=== PATIENT | female | born 1990 | race Hispanic/Latino ===

== ENCOUNTER 2016-10-03 12:45 | Emergency (ER) | payer OTHER ==
[~2016-10-03] VITALS: Ht 152.4 cm; Wt 59.4 kg
[~2016-10-03 12:45] MED LIST: ANTIVERT/5050 MG PO; EXCEDRIN MIGRAI1 TAB PO; FLEXERIL10 MG PO; IBU-6600 MG PO; MOBIC15 M1 PO; MOTRIN 600 MG600 MG PO; PYRIDIUM200 MG PO
--- NOTE | 2016-10-03 13:21 | ED GI/GU/ABDOMINAL COMPLAINT ---
History of Present Illness General Chief Complaint: Abdominal Pain/Flank Pain Stated Complaint: LRQ ABD PAIN, DIARRHEA X 12 HRS Source: patient Exam Limitations: no limitations Vital Signs & Intake/Output Vital Signs & Intake/Output Vital Signs Date Time Temp Pulse Resp B/P Pulse O2 O2 Flow FiO2 Ox Delivery Rate 10/03 1715 97.6 85 18 103/58 97 Room Air 10/03 1439 96.3 81 18 121/72 100 Room Air 10/03 1350 Room Air 10/03 1256 98.0 98 18 110/70 99 Room Air Allergies Coded Allergies: NO KNOWN ALLERGIES (10/03/16) Reconcile Medications Ibuprofen 800 MG TABLET 800 MG PO TID PRN PAIN SCALE 4-6 (MODERATE) Oxycodone HCl/Acetaminophen (Percocet 5-325 MG Tablet) 5 MG-325 MG TABLET 2 TAB PO Q4-6 PRN PRN PAIN SCALE 7-10 (SEVERE) Triage Note: RECEIVED 26 YO FEMALE C/O RLQ ABOMINAL PAIN, STARTED LAST NIGHT WITH DIARRHEA. LMP 09/23/16 NO C/O NAUSEA OR VOMITING Triage Nurses Notes Reviewed? yes ? N Is pt currently ? No Onset: Gradual Duration: day(s): (1) Timing: no prior history Quality/Severity: sharpness Severity Numbers: 9 Location: right lower quadrant Radiation: no radiation Activities at Onset: none Prior Abdominal Problems: none Sexually Active: Yes Last Time You Were Sexual: less than 2 months ago Sexual Orientation: Heterosexual Use of Protection: No Modifying Factors: Worsens With: movement, palpation. HPI: Patient is a 26-year-old female presenting to the emergency Department chief complaint of right lower quadrant pain that began last name progressively getting worse today. Pain has been constant. Pain is sharp and stabbing, nonradiating. Denies any associate any fevers chills nausea or vomiting. She does report one episode of loose stool this morning. No blood in the stool. Denies any recent antibiotic use. No recent travel. Denies any abdominal surgeries. Denies chance of . Denies any urinary frequency urgency or dysuria. Symptoms currently moderate to severe. Denies taking anything for pain prior to arrival. (LEXI BRYAN,JAY) Past History Travel History Traveled to [place] past 21 day No Medical History Any Pertinent Medical History? see below for history Neurological: NONE EENT: NONE Cardiovascular: NONE Respiratory: NONE Gastrointestinal: NONE Hepatic: NONE Renal: NONE Musculoskeletal: NONE Psychiatric: NONE Endocrine: NONE Blood Disorders: NONE Cancer(s): NONE NURSERY HELPER/Reproductive: NONE Surgical History Surgical History: non-contributory Psychosocial History What is your primary language Spanish Tobacco Use: Quit >30 days ago Family History Hx Contributory? No (JAY OAKLEY) Review of Systems Review of Systems Constitutional: Reports: no symptoms. Comments Review of systems: See HPI, All other systems negative. Constitutional, no chills fever or weight loss HEENT: No visual changes no sore throat no congestion Cardiovascular: No chest pain ,palpitation , orthopnea or ankle swelling Skin, no jaundice no rashes Respiratory: No dyspnea cough sputum or hemoptysis GI: No nausea no vomiting : No dysuria No hematuria Muscle skeletal: no back pain, no neck pain, Neurologic: No numbness no confusion Psych: No stress anxiety or depression,. Heme/endocrine: No bruising no bleeding no polyuria or polydipsia Immunology: No splenectomy or history of AIDS (JAY OAKLEY) Physical Exam Physical Exam General Appearance: well developed/nourished, alert, awake, mild distress Gastrointestinal: distention, guarding, rebound, HYPERACTIVE BOWEL SOUNDS Comments: Well-developed well-nourished person in mild distress HEENT: Pupils equally round and reactive to light and accommodation. Nose is atraumatic. Neck: Normal inspection Back: Nontender, no CVA tenderness. Full range of motion Cardiovascular: Regular rate and rhythms no murmurs rubs or gallops, normal JVP Respiratory: Chest nontender. No respiratory distress.breath sounds clear to auscultation bilaterally Abdomen: Moderately distended, hyperactive bowel sounds, positive rebound tenderness and tenderness in the right lower quadrant. No appreciable organomegaly. No ascites Extremity: No edema Neuro: Alert oriented x3 Skin: No appreciable rash on exposed skin, skin is warm and dry. Psych: Mood and affect is normal, memory and judgment is normal. Core Measures ACS in differential dx? No Severe Sepsis Present: No Septic Shock Present: No (JAY OAKLEY) Progress Differential Diagnosis: UTI/pyelo, APPENDICITIS, OVARIAN TORSION, OVARIAN CYSTS, GASTRITIS, COLITIS Plan of Care: Orders Procedure Date/time Status LACTIC ACID 10/03 1321 Complete C-REACTIVE PROTEIN 10/03 1321 Complete COMPREHENSIVE METABOLIC PANEL 10/03 1321 Complete CBC WITHOUT DIFFERENTIAL 10/03 1321 Complete URINE 10/03 1259 Complete URINALYSIS 10/03 1259 Complete Laboratory Tests 10/03/16 1621: Lactic Acid Cancelled 10/03/16 1338: Urine Color YEL, Urine Clarity CLEAR, Urine pH 6.0, Ur Specific [place] 1.025, Urine Protein NEG, Urine Ketones NEG, Urine Nitrite NEG, Urine Bilirubin NEG, Urine Urobilinogen 0.2, Ur Leukocyte Esterase NEG, Ur Microscopic EXAM NOT REQUIRED, Urine Hemoglobin NEG, Urine Glucose NEG, Urine Test NEGATIVE 10/03/16 1335: Anion Gap 10, Estimated GFR > 60, BUN/Creatinine Ratio 21.4, Glucose 94, Lactic Acid 0.7, Calcium 9.3, Total Bilirubin 1.3, AST 34, ALT 38, Alkaline Phosphatase 63, C-Reactive Prot, Quant 0.6, Total Protein 7.7, Albumin 4.5, Globulin 3.2, Albumin/Globulin Ratio 1.4, CBC w Diff NO MAN DIFF REQ, RBC 4.07 L, MCV 92.3, MCH 31.0, RDW 12.9, MPV 8.1, Gran % 67.1, Lymphocytes % 24.8, Monocytes % 6.9, Eosinophils % 0.7, Basophils % 0.5, Absolute Granulocytes 6.7 H, Absolute Lymphocytes 2.5, Absolute Monocytes 0.7 H, Absolute Eosinophils 0.1, Absolute Basophils 0, PUBS MCHC 33.6 Diagnostic Imaging: Viewed by Me: CT Scan, Ultrasound. Discussed w/RAD: CT Scan, Ultrasound. Radiology Impression: PRESENT AGE: 26 PATIENT ACCOUNT NO: [id number] : 91 LOCATION: [facility] ORDERING PHYSICIAN: JAY BRYAN SERVICE DATE: EXAM TYPE: CAT - CT ABD & PELVIS W IV CONTRAST EXAMINATION: CT ABDOMEN AND PELVIS WITH CONTRAST CLINICAL INFORMATION: Right lower quadrant. COMPARISON: CT abdomen and pelvis 08/11/2013. TECHNIQUE: Multidetector volumetric imaging was performed of the abdomen and pelvis before and after the IV administration of 94 mL of Optiray 320 intravenous contrast. Sagittal and coronal reformatted images were obtained on the technologist's workstation. DLP: 235 mGy-cm FINDINGS : LUNG BASES: The visualized lung bases appear unremarkable. LIVER, GALLBLADDER, AND BILIARY TREE: The liver is normal in size, shape, and attenuation. No focal hepatic lesion or biliary ductal dilatation is present. The gallbladder is unremarkable with no evidence of radiopaque gallstones, gallbladder wall thickening, or obvious pericholecystic inflammatory changes. PANCREAS: Unremarkable. SPLEEN: Unremarkable. ADRENAL GLANDS: Unremarkable. KIDNEYS AND URETERS: The kidneys are normal in size and enhance homogeneously, without focal lesions. There is no appreciable nephrolithiasis or hydroureteronephrosis of either kidney or renal collecting system. No ureteral stones are identified. BLADDER: The urinary bladder is decompressed. GASTROINTESTINAL TRACT: Evaluation of the gastrointestinal system is notable for hyperdense material within Morison 's pouch. Hyperdense material is also visualized layering dependently within the right paracolic gutter, within the lower abdomen as well as within the pelvis. This fluid is visualized measuring up to 45 Hounsfield units, which is indicative of intraperitoneal blood products. Normal anatomic orientation of the stomach relative to the duodenum. Normal caliber of abdominal and pelvic bowel loops, without evidence of obstruction or ileus. No circumferential bowel wall thickening with surrounding inflammatory changes to suggest an underlying infectious or inflammatory enterocolitis. Nonvisualization of the appendix. No acute inflammatory changes within the right lower quadrant of the abdomen. No organizing intra-abdominal fluid collections or free intraperitoneal air. ABDOMINAL WALL: No significant hernia is appreciated. LYMPH NODES: No significant abdominal or pelvic adenopathy. VASCULAR: Patent abdominal vasculature. Normal course and caliber of the abdominal aorta and its branching vessels, without aneurysmal dilatation. PELVIC VISCERA: As noted above, hyperdense material is identified within the abdomen and pelvis, and is suspicious for intraperitoneal hematoma. Evaluation of the pelvic viscera is notable for several hypoattenuating masses within the right adnexa, with the largest visualized measuring approximately 4.3 x 4.7 cm (series 2, image 58). There is an additional hypoattenuating structure within the right adnexa measuring 1.7 x 2.2 cm. OSSEOUS STRUCTURES: No acute osseous abnormality. IMPRESSION: Hyperdense material layering dependently within Morison's pouch as well as within the right paracolic gutter, the lower abdomen and pelvis. This hyperdense fluid is visualized measuring up to 45 Hounsfield units and is suspicious for intraperitoneal blood products. Primary diagnostic consideration is for a ruptured simple or complex ovarian cyst given hypoattenuating lesions within the right adnexa, as detailed above. The largest of these right adnexal hypoattenuating masses is visualized measuring up to 4.3 x 4.7 cm. Recommend correlation with pelvic ultrasound and ovarian Doppler to assess for ovarian torsion. This critical result was discussed with Dr. Óscar Keller at 4:15 PM on 10/03/2016 and it was ascertained that the content and urgency of the report was understood at the time of direct communication. DICTATED BY: LANEY CASILLAS MD DATE/TIME DICTATED:10/03/161555 HIDES AND SKINS COLORER:EL DATE/TIME TRANSCRIBED:10/03/161555 CONFIDENTIAL, DO NOT COPY WITHOUT APPROPRIATE AUTHORIZATION. <Electronically signed in Other Vendor System> SIGNED BY: LANEY CASILLAS MD 10/03/16 1625 Initial ED EKG: none Comments: 10/03/2016 4:29:29 PM patient informed of all imaging results and lab work results. Patient will go for ultrasound to further assess questionable ovarian torsion versus cyst. Patient resting topically after IV morphine, IV fluids. Vital stable. Still afebrile. Spoke with Dr. Quinn regarding CT results and ultrasound results. Likely large ovarian cyst. Patient will be treated symptomatically with pain medication and will follow-up in the office. She was advised to return for any worsening symptoms or concerns. d/w dr medrano and he agrees with plan. (JAY OAKLEY) Departure Departure Time of Disposition: 1846 Disposition: HOME OR SELF CARE Condition: Stable Clinical Impression Primary Impression: Ovarian cyst Qualifiers: Laterality: right Qualified Code: N83.201 - Unspecified ovarian cyst, right side Referrals: SAUMYA QUINN DO, MD,DARLINE (PCP/Family) Additional Instructions: Follow-up with Dr. Quinn, DRAPERY COUNSELOR. Take Percocet as prescribed for pain. It is important he make a follow-up appointment for next week. Return for worsening symptoms or concerns. Departure Forms: Customer Survey General Discharge Information (JAY OAKLEY) PA/STILL PUMP OPERATOR Co-Sign Statement Statement: ED Attending supervision documentation- [] I saw and evaluated the patient. I have also reviewed all the pertinent lab results and diagnostic results. I agree with the findings and the plan of care as documented in the PA's/STILL PUMP OPERATOR's documentation. X I have reviewed the ED Record and agree with the PA's/STILL PUMP OPERATOR's documentation. [] Additions or exceptions (if any) to the PAs/STILL PUMP OPERATOR's note and plan are summarized below: [] (TRESA BARRERA,ÓSCAR)
[2016-10-03 14:07] LABS: ABSOLUTE BASOPHIL COUNT 0 /CUMM (0.0-0.2); ABSOLUTE EOSINOPHIL COUNT 0.1 /CUMM (0.0-0.7); ABSOLUTE GRANULOCYTE CT 6.7 /CUMM (1.4-6.5); ABSOLUTE LYMPH COUNT 2.5 /CUMM (1.2-3.4); ABSOLUTE MONOCYTE COUNT 0.7 /CUMM (0.10-0.60); BASOPHIL % 0.5 % (0.0-2.0); EOSINOPHIL % 0.7 % (0-5); GRANULOCYTE % 67.1 % (42.2-75.2); HEMATOCRIT 37.6 % (37-47); MEAN CORPUSCULAR HGB CONC 33.6 G/DL (33.0-37.0); MEAN CORPUSCULAR VOLUME 92.3 FL (81.0-99.0); MEAN PLATELET VOLUME 8.1 FL (7.4-10.4); PLATELET COUNT 274 /CUMM (130-400); RBC DISTRIBUTION WIDTH 12.9 % (11.5-14.5); RED BLOOD CELL CT 4.07 /CUMM (4.20-5.40)
--- NOTE | 2016-10-03 16:22 | CT SCAN REPORT ---
EXAMINATION: CT ABDOMEN AND PELVIS WITH CONTRAST CLINICAL INFORMATION: Right lower quadrant. COMPARISON: CT abdomen and pelvis 08/11/2013. TECHNIQUE: Multidetector volumetric imaging was performed of the abdomen and pelvis before and after the IV administration of 94 mL of Optiray 320 intravenous contrast. Sagittal and coronal reformatted images were obtained on the technologist's workstation. DLP: 235 mGy-cm FINDINGS: LUNG BASES: The visualized lung bases appear unremarkable. LIVER, GALLBLADDER, AND BILIARY TREE: The liver is normal in size, shape, and attenuation. No focal hepatic lesion or biliary ductal dilatation is present. The gallbladder is unremarkable with no evidence of radiopaque gallstones, gallbladder wall thickening, or obvious pericholecystic inflammatory changes. PANCREAS: Unremarkable. SPLEEN: Unremarkable. ADRENAL GLANDS: Unremarkable. KIDNEYS AND URETERS: The kidneys are normal in size and enhance homogeneously, without focal lesions. There is no appreciable nephrolithiasis or hydroureteronephrosis of either kidney or renal collecting system. No ureteral stones are identified. BLADDER: The urinary bladder is decompressed. GASTROINTESTINAL TRACT: Evaluation of the gastrointestinal system is notable for hyperdense material within Morison's pouch. Hyperdense material is also visualized layering dependently within the right paracolic gutter, within the lower abdomen as well as within the pelvis. This fluid is visualized measuring up to 45 Hounsfield units, which is indicative of intraperitoneal blood products. Normal anatomic orientation of the stomach relative to the duodenum. Normal caliber of abdominal and pelvic bowel loops, without evidence of obstruction or ileus. No circumferential bowel wall thickening with surrounding inflammatory changes to suggest an underlying infectious or inflammatory enterocolitis. Nonvisualization of the appendix. No acute inflammatory changes within the right lower quadrant of the abdomen. No organizing intra-abdominal fluid collections or free intraperitoneal air. ABDOMINAL WALL: No significant hernia is appreciated. LYMPH NODES: No significant abdominal or pelvic adenopathy. VASCULAR: Patent abdominal vasculature. Normal course and caliber of the abdominal aorta and its branching vessels, without aneurysmal dilatation. PELVIC VISCERA: As noted above, hyperdense material is identified within the abdomen and pelvis, and is suspicious for intraperitoneal hematoma. Evaluation of the pelvic viscera is notable for several hypoattenuating masses within the right adnexa, with the largest visualized measuring approximately 4.3 x 4.7 cm (series 2, image 58). There is an additional hypoattenuating structure within the right adnexa measuring 1.7 x 2.2 cm. OSSEOUS STRUCTURES: No acute osseous abnormality. IMPRESSION: Hyperdense material layering dependently within Morison's pouch as well as within the right paracolic gutter, the lower abdomen and pelvis. This hyperdense fluid is visualized measuring up to 45 Hounsfield units and is suspicious for intraperitoneal blood products. Primary diagnostic consideration is for a ruptured simple or complex ovarian cyst given hypoattenuating lesions within the right adnexa, as detailed above. The largest of these right adnexal hypoattenuating masses is visualized measuring up to 4.3 x 4.7 cm. Recommend correlation with pelvic ultrasound and ovarian Doppler to assess for ovarian torsion. This critical result was discussed with Dr. August Keller at 4:15 PM on 10/03/2016 and it was ascertained that the content and urgency of the report was understood at the time of direct communication.
--- NOTE | 2016-10-03 17:50 | ULTRASOUND REPORT ---
EXAMINATION: ULTRASOUND PELVIS COMPLETE CLINICAL INFORMATION: Right lower quadrant pain. Evaluate for ovarian torsion. COMPARISON: CT abdomen and pelvis with contrast 10/03/2016. TECHNIQUE: Real-time sonographic imaging of the uterus and bilateral adnexa via transabdominal and transvaginal approach. FINDINGS: The uterus is anteverted and measures 6.8 x 2.6 x 4.2 cm in sagittal, AP and transverse dimensions respectively, corresponding to a volume of 39 mL. The cervical length is 1.95 cm. The endometrial stripe measures 0.78 cm in thickness. Of note, there is a complex cystic structure within the right adnexa with lobular internal echogenic debris or soft tissue. This large, complex cystic structure measures approximately 4.6 x 3.4 x 4.9 cm in sagittal, AP and transverse dimensions respectively and corresponds to a recently described large hypoattenuating structure within the right adnexa on a similarly dated CT of the abdomen and pelvis. It appears distinct from the right ovary. There is no visible internal vascularity on color Doppler imaging. The right ovary measures 3.2 x 1.9 x 3.0 cm, corresponding to a volume of 10 mL. There is a simple cyst within the right ovary measuring 1.2 x 1.5 x 0.9 cm. The left ovary measures 2.7 x 1.8 x 2.3 cm, corresponding to a volume of 6.2 mL. Arterial and venous flow are demonstrated within the bilateral ovaries. There is a minimal amount of fluid within the pelvic cul-de-sac. IMPRESSION: 1. A 4.6 x 3.4 x 4.9 cm complex cystic structure within the right adnexa with internal echogenic soft tissue/debris. There is no appreciable internal vascularity on color Doppler imaging. This complex cystic structure is indeterminate and could reflect a large exophytic hemorrhagic cyst with associated internal clot although a complex cystic and solid right adnexal mass cannot be entirely excluded. Recommend gynecological consultation. Contrast-enhanced MRI of the pelvis would be helpful in further characterization. 2. Arterial and venous flow are demonstrated within the bilateral ovaries. There are no findings suggestive of ovarian torsion.
[2016-10-03] MEDS ORDERED: PERCOCET 5-3251 EACH PO (18:49)
[2016-10-03 19:12] VITALS: BP 108/67
== END 2016-10-03 19:24 ==
LOC: ERH 12:45
PROVIDERS: Physician Assistant
DX: N83.201 Unspecified ovarian cyst, right side (principal)
CPT/HCPCS: 74177; 81003; 81025; 96361; 96374; 96375; 96376; J1885

== ENCOUNTER 2016-10-04 10:11 | Observation (INO) | payer OTHER ==
[~2016-10-04] VITALS: Ht 152.4 cm; Wt 59.4 kg
[~2016-10-04 10:11] MED LIST changes: +PERCOCET 5-3251 EACH PO
--- NOTE | 2016-10-04 10:47 | ED GI/GU/ABDOMINAL COMPLAINT ---
History of Present Illness General Chief Complaint: Abdominal Pain/Flank Pain Stated Complaint: ABD PAIN SEEN HERE YESTERDAY FOR SAME Source: patient, old records Exam Limitations: no limitations Vital Signs & Intake/Output Vital Signs & Intake/Output Vital Signs Date Time Temp Pulse Resp B/P Pulse O2 O2 Flow FiO2 Ox Delivery Rate 10/04 1558 97.6 71 16 139/98 100 Room Air 10/04 1330 98.8 78 17 112/62 96 Room Air 10/04 1018 98.5 96 16 114/73 98 Room Air Allergies Coded Allergies: NO KNOWN ALLERGIES (10/03/16) Reconcile Medications Oxycodone HCl/Acetaminophen (Percocet 5-325 MG Tablet) 5 MG-325 MG TABLET 1 TAB PO Q6HR PRN PAIN Triage Note: PT HERE WITH C/O ABD PAIN SEEN HERE YESTERDAY FOR SAME. PT STATES HER PAIN IS GETTING WORSE PT STATES SHE HAD DIARRHEA AGAIN TODAY THAT WAS ALMOST BLACK. Triage Nurses Notes Reviewed? yes ? n Is pt currently ? No HPI: 26-year-old female returns with worsening right lower quadrant abdominal pain. She was seen here yesterday for same, states she had 2 doses of IV morphine and IV Dilaudid and Dilaudid helped her, she had a CT scan and an ultrasound of her pelvis which I have reviewed which shows a cystic like mass on the right adnexa. She had normal labs yesterday, no fever no flulike illness. She went home after being discharged last evening, vomited once which she thinks may benefit from the pain medication, states he was difficult to sleep last night due to the pain, woke up this morning, had a bowl of cereal and had worsening pain and diarrhea, presented here for further evaluation. She states her pain yesterday was 7 or 8 out of 10, today is 10 out of 10, sharp, right lower quadrant, nonradiating. She does not have an MANAGER OUTPATIENT. She is with no previous abdominal surgeries. She denies any vaginal discharge or bleeding (DAVID GIBSON) Past History Travel History Traveled to [place] past 21 day No Medical History Any Pertinent Medical History? see below for history Neurological: NONE EENT: NONE Cardiovascular: NONE Respiratory: NONE Gastrointestinal: NONE Hepatic: NONE Renal: NONE Musculoskeletal: NONE Psychiatric: NONE Endocrine: NONE Blood Disorders: NONE Cancer(s): NONE REAL ESTATE ECONOMIST/Reproductive: OVARIAN CYST RIGHT Surgical History Surgical History: non-contributory Psychosocial History What is your primary language Puerto Rican Tobacco Use: Never used ETOH Use: occasional use Illicit Drug Use: denies illicit drug use Family History Hx Contributory? No (DAVID GIBSON) Review of Systems Review of Systems Constitutional: Reports: see HPI. EENTM: Reports: no symptoms. Respiratory: Reports: no symptoms. Cardiovascular: Reports: no symptoms. GI: Reports: see HPI. Genitourinary: Reports: no symptoms. Musculoskeletal: Reports: no symptoms. Skin: Reports: no symptoms. Neurological/Psychological: Reports: no symptoms. Hematologic/Endocrine: Reports: no symptoms. Immunologic/Allergic: Reports: no symptoms. All Other Systems: Reviewed and Negative (DAVID GIBSON) Physical Exam Physical Exam Respiratory: normal breath sounds, chest non-tender, no respiratory distress Cardiovascular: regular rate/rhythm Gastrointestinal: normal bowel sounds, soft, tenderness (right lower quadrant) Back: no vertebral tenderness, no CVA tenderness Comments: Well-developed well-nourished no apparent distress. HEENT: Atraumatic, extraocular motion intact Neck: Supple, no lymphadenopathy Back: Nontender Respiratory: No respiratory distress Extremities: No edema, full range of motion Neuro: Alert and oriented x3 Psych: Mood affect normal, normal memory normal judgment. Skin: Warm and dry, no rash on exposed skin Core Measures ACS in differential dx? No Severe Sepsis Present: No Septic Shock Present: No (DAVID GIBSON) Progress Differential Diagnosis: AAA, AMI, appendicitis, biliary colic, bowel obstruction , colon cancer, cholecystitis, diverticulitis, ectopic , endometritis, esophageal varices, gastritis, hepatitis, hernia, hemorrhoids, ischemic bowel, inflamm bowel dis, intrauterine , kidney stone, Cherelle-Danielle tear, ovarian cyst, ovarian torsion, pancreatitis, PID/cervicitis, peptic ulcer, PUD/ GERD, perforated viscous, SBO, threatened AB, UTI/pyelo Plan of Care: Orders Procedure Date/time Status PATHOLOGY SPECIMEN 10/04 1801 Active Lab Add-on Test 10/04 1512 Active TYPE & SCREEN (NOT X-MATCH) 10/[address] in observation 10/04 1239 Active HUMAN BETA HCG TITRE 10/04 1226 Complete Add-on Test (ER Only) 10/04 1152 Active CBC WITHOUT DIFFERENTIAL 10/04 1038 Complete Laboratory Tests 10/04/16 1254: Beta HCG, Quant < 2.4 10/04/16 1100: CBC w Diff NO MAN DIFF REQ, RBC 3.59 L, MCV 92.7, MCH 31.0, RDW 12.9, MPV 7.8, Gran % 70.9, Lymphocytes % 20.3 L, Monocytes % 7.1, Eosinophils % 1.4, Basophils % 0.3, Absolute Granulocytes 5.2, Absolute Lymphocytes 1.5, Absolute Monocytes 0.5, Absolute Eosinophils 0.1, Absolute Basophils 0, PUBS MCHC 33.5 Initial ED EKG: none Comments: Patient given IV Dilaudid for pain. We will recheck CVC to evaluate for decrease in hemoglobin which would indicate a hemorrhagic ovarian cyst that is worsening. Patient did suffer a mild drop in her hematocrit, Dr. Quinn was consulted. She will be in the ER to evaluate the patient. Patient still having continued pain, Dr. Quinn recommends ultrasound to see if the cyst has increased in size or there is any torsion that has occurred. Beta-hCG is negative, discussed with again, patient with continued pain, given another milligram of Dilaudid IV, she will take patient to the OR for laparoscopic exploration and admit the patient for observation (DAVID GIBSON) Departure Departure Disposition: STILL A PATIENT Condition: Stable Clinical Impression Primary Impression: Hemorrhagic ovarian cyst Secondary Impressions: Abdominal pain Qualifiers: Abdominal location: right lower quadrant Qualified Code: R10.31 - Right lower quadrant pain Referrals: DARLINE BURTON MD (PCP/Family) Departure Forms: Customer Survey General Discharge Information Observation Note Spoke With: SAUMYA QUINN DO Physician Advisor Notified: DENIS RIVERA DO Place Patient In: Non-ED OBS Care Area Rationale for Observation: My rational for observation is as follows . HEMORRHAGIC OVARIAN CYST, DROP IN H/H, NEEDS SERIAL CBC TO MONITOR FOR INTRA ABD BLEEDING, SERIAL EXAMS FOR PAIN, IV PAIN CONTROL. (DAVID GIBSON) PA/ELECTRONICS HARDWARE DESIGN ENGINEER Co-Sign Statement Statement: ED Attending supervision documentation- x I saw and evaluated the patient. I have also reviewed all the pertinent lab results and diagnostic results. I agree with the findings and the plan of care as documented in the PA's/ELECTRONICS HARDWARE DESIGN ENGINEER's documentation. [] I have reviewed the ED Record and agree with the PA's/ELECTRONICS HARDWARE DESIGN ENGINEER's documentation. [] Additions or exceptions (if any) to the PAs/ELECTRONICS HARDWARE DESIGN ENGINEER's note and plan are summarized below: [] (TRESA BARRERA,ÓSCAR)
[2016-10-04 11:16] LABS: ABSOLUTE BASOPHIL COUNT 0 /CUMM (0.0-0.2); ABSOLUTE EOSINOPHIL COUNT 0.1 /CUMM (0.0-0.7); ABSOLUTE GRANULOCYTE CT 5.2 /CUMM (1.4-6.5); ABSOLUTE LYMPH COUNT 1.5 /CUMM (1.2-3.4); ABSOLUTE MONOCYTE COUNT 0.5 /CUMM (0.10-0.60); BASOPHIL % 0.3 % (0.0-2.0); EOSINOPHIL % 1.4 % (0-5); GRANULOCYTE % 70.9 % (42.2-75.2); HEMATOCRIT 33.3 % (37-47); MEAN CORPUSCULAR HGB CONC 33.5 G/DL (33.0-37.0); MEAN CORPUSCULAR VOLUME 92.7 FL (81.0-99.0); MEAN PLATELET VOLUME 7.8 FL (7.4-10.4); PLATELET COUNT 231 /CUMM (130-400); RBC DISTRIBUTION WIDTH 12.9 % (11.5-14.5); RED BLOOD CELL CT 3.59 /CUMM (4.20-5.40); WHITE BLOOD CELL COUNT 7.4 /CUMM (4.8-10.8)
--- NOTE | 2016-10-04 13:48 | ULTRASOUND REPORT ---
EXAMINATION: ULTRASOUND OF THE PELVIS CLINICAL INFORMATION: 26-year-old female found to have pelvic mass on recent CT scan of the abdomen and pelvis done on 10/03/2016. Follow-up pelvic ultrasound is requested. COMPARISON: CT of the abdomen and pelvis done on 10/03/2016. TECHNIQUE: Transabdominal and transvaginal pelvic ultrasound. FINDINGS: The uterus is normal in size and appearance, measuring 7.4 x 2.7 x 3.3 cm longitudinally, anteroposteriorly and transversely. The endometrial stripe thickness is normal, measuring 0.9 cm in thickness. The cervical length measures 2.4 cm. No focal myometrial mass is seen. The left ovary measures 3.2 x 2.3 x 2.9 cm, volume of 11.2 mL. The right ovary is visualized, measures 3.7 x 2.8 x 2.7 cm with a volume of 14.6. There is a dominant approximately 2.1 x 1.6 cm unilocular presumed follicle identified. In the region of the right adnexa, inseparable from the right ovary, there is a large relatively well defined mixed solid, cystic mass identified, measures approximately 7.0 x 3.9 x 6.6 cm, shows predominantly solid lobulated component and cystic change associated with low-level echoes. There is a flow to both ovaries present. The flow within the right adnexal mass is also present. Possible differential diagnostic consideration would include possible rupture of hemorrhagic follicle with large right adnexal hemorrhagic collection versus ectopic . A transvaginal study was performed in addition to the transabdominal study which did not yield an adequate examination of the uterus and ovaries due to superimposed distended gas-filled loops of bowel. IMPRESSION: Sonographically unremarkable uterus and left ovary. Large predominantly solid-appearing mass is identified in the right adnexal region inseparable from the right ovary, may represent changes secondary to hemorrhagic follicle rupture versus ectopic . This critical result was discussed with Dr. Valerio at 1:20 p.m. on 10/04/2016 and it was ascertained that the content and urgency of the report was understood at the time of direct communication. The patient's urinary test apparently is negative however, serum beta-hCG level is pending.
--- NOTE | 2016-10-04 15:11 | History & Physical ---
General Information and HPI MD Statement: I have seen and personally examined ABELARDO MCNEIL and documented this H&P. The patient is a 26 year old F who presented with a patient stated chief complaint of [RIGHT SIDED PELVIC PAIN]. Source of Information: patient, family Exam Limitations: no limitations History of Present Illness: 26 YEAR OLD NULLIPAROUS FEMALE, LMP 09/23/2016, NEG HCG WHO PRESENTS WITH 3 DAY HISTORY OF RIGHT SIDED PELVIC PAIN. PT PRESENTED TO THE ER WITH PAIN AND HAD A CT AND PELVIC U/S THAT DEMONSTRATED A 5CM RIGHT HEMMORHAGIC APPEARING OVARIAN CYST, HEMOPERITONEUM ON CT, BUT MINIMAL FREE FLUID ON US. SHE WAS STABLE AND DISCHARGED TO HOME WITH MOTRIN AND PERCOCET. SHE RETURNED TODAY WITH PERSISTENT PAIN DESPITE ORAL PAIN RX. BETA HCG WAS NEGATIVE, PELVIC ULTRASOUND REPEATED AND AGAIN NO TORSION NOTED, HOWEVER OVARIAN CYST NOW 7CM. NO OBVIOUS HEMOPERITONEUM. BLOOD/CLOT APPEARS CONTAINED WITHIN CYST. H/H YESTERDAY . TODAY .. VITALS ARE STABLE. PT HAS BEEN REQUIRING IV DILAUDID TO CONTROL PAIN. DISCUSSED OBSERVATION VS. EXPLORATORY LAPAROSCOPY WITH CYSTECTOMY. SHE DESIRES SURGICAL INTERVENTION FOR DIAGNOSTIC AND THERAPEUTIC PURPOSES. Allergies/Medications Allergies: Coded Allergies: NO KNOWN ALLERGIES (10/03/16) Home Med list Oxycodone HCl/Acetaminophen (Percocet 5-325 MG Tablet) 5 MG-325 MG TABLET 1 TAB PO Q6HR PRN PAIN Compliance With Home Meds: GOOD Past History Travel History Traveled to [place] past 21 day No Medical History Neurological: NONE EENT: NONE Cardiovascular: NONE Respiratory: NONE Gastrointestinal: NONE Hepatic: NONE Renal: NONE Musculoskeletal: NONE Psychiatric: NONE Endocrine: NONE Blood Disorders: NONE Cancer(s): NONE ECHOCARDIOGRAPH TECH/Reproductive: OVARIAN CYST RIGHT Surgical History Surgical History: non-contributory Past Family/Social History Psychosocial History ETOH Use: occasional use Illicit Drug Use: denies illicit drug use Review of Systems Review of Systems Constitutional: Reports: no symptoms. Cardiovascular: Reports: no symptoms. Respiratory: Reports: no symptoms. GI: Reports: see HPI, abdominal pain, diarrhea. Denies: bloating, constipation, distention, bowel incontinence, melena, nausea, bloody stool, changes in stool, vomiting, steatorrhea. Genitourinary: Reports: see HPI. Musculoskeletal: Reports: no symptoms. Skin: Reports: no symptoms. Neurological/Psychological: Reports: no symptoms. Hematologic/Endocrine: Reports: no symptoms. Immunologic/Allergic: Reports: no symptoms. All Other Systems: Reviewed and Negative Exam & Diagnostic Data Last 24 Hrs of Vital Signs/I&O Vital Signs Date Time Temp Pulse Resp B/P Pulse O2 O2 Flow FiO2 Ox Delivery Rate 10/04 1330 98.8 78 17 112/62 96 Room Air 10/04 1018 98.5 96 16 114/73 98 Room Air Intake & Output 10/04 1600 10/04 0800 10/04 0000 Intake Total Output Total Balance Patient 131 lb Weight Physical Exam General Appearance Alert, Oriented X3, Cooperative, No Acute Distress Cardiovascular Regular Rate, Normal S1, Normal S2 Lungs Clear to Auscultation, Normal Air Movement Abdomen Normal Bowel Sounds, Soft, No Masses, DIFFUSELY TENDER TO PALPATION, R> L. NO GUARDING OR REBOUND Neurological Normal Gait, Normal Speech, Strength at 5/5 X4 Ext, Normal Tone, Sensation Intact Extremities No Clubbing, No Cyanosis, No Edema Last 24 Hrs of Labs/Kevin: Laboratory Tests 10/04/16 1254: Beta HCG, Quant < 2.4 10/04/16 1100: CBC w Diff NO MAN DIFF REQ, RBC 3.59 L, MCV 92.7, MCH 31.0, RDW 12.9, MPV 7.8, Gran % 70.9, Lymphocytes % 20.3 L, Monocytes % 7.1, Eosinophils % 1.4, Basophils % 0.3, Absolute Granulocytes 5.2, Absolute Lymphocytes 1.5, Absolute Monocytes 0.5, Absolute Eosinophils 0.1, Absolute Basophils 0, PUBS MCHC 33.5 Laboratory TestsLaboratory Tests 10/04/16 1254: Beta HCG, Quant < 2.4 10/04/16 1100: CBC w Diff NO MAN DIFF REQ, RBC 3.59 L, MCV 92.7, MCH 31.0, RDW 12.9, MPV 7.8, Gran % 70.9, Lymphocytes % 20.3 L, Monocytes % 7.1, Eosinophils % 1.4, Basophils % 0.3, Absolute Granulocytes 5.2, Absolute Lymphocytes 1.5, Absolute Monocytes 0.5, Absolute Eosinophils 0.1, Absolute Basophils 0, PUBS MCHC 33.5 Assessment/Plan As Ranked By This Provider Problem List: 1. Abdominal pain 2. Hemorrhagic ovarian cyst Core Measures/Miscellaneous Acute Coronary Syndrome ACS Diagnosis: No Cerebrovascular Accident CVA/TIA Diagnosis: No Congestive Heart Failure CHF Diagnosis: No Venous Thromboembolism VTE Risk Factors: No Risk Factors VTE Prophylaxis Ordered Inpt: Early Ambulation No Mech VTE prophylaxis d/t: VTE low risk No VTE Pharm Prophylaxis d/t: VTE low risk VTE Diagnosis: No VTE Type: NONE VTE Confirmed by (Test): NONE Severe Sepsis Severe Sepsis Present: No Septic Shock Septic Shock Present: No Miscellaneous Documentation Attending Case Discussed With: N/A Primary Care Physician: DARLINE BURTON MD Patient sees these Specialists N/A Level of Patient Care: General Smoke Jumper Review Statement Resident Statement: N/A Other Findings: 26 YEAR OLD NULLIP. ENLARGING HEMMORHAGIC OVARIAN CYST (5CM YESTERDAY,7CM TODAY) WITH WORSENING ABDOMINAL PAIN. NEGATIVE HCG. SLIGHT DROP IN H/H BUT VITALS APPEAR STABLE. PLAN LAPAROSCOPY AND CYSTECTOMY. DISCUSSED ALTERNATIVE OF OBSERVATION AND SERIAL H/H WITH POSSIBLE NEED TO HAVE SURGERY IF WORSENING CONDITION, DISCUSSED RISK OF SURGERY: RISK OF BLEEDING, INFECTION, INJURY TO OTHER ORGANS, NEED FOR ADDITIONAL PROCEDURES SHOULD COMPLICATION OCCUR. RECURRENT OVARIAN CYST. REMOTE NEED FOR LAPAROTOMY, OOPHERECTOMY. QUESTIONS ANSWERED AND SHE DECLINES OBSERVATION AND DESIRES TO PROCEED.
[2016-10-04 20:40] VITALS: BP 100/68
--- NOTE | 2016-10-04 21:52 | Operative Report ---
Operative/Inv Procedure Report Surgery Date: 10/04/16 Name of Procedure: Laparoscopy, right ovarian cystectomy, evacuation of hemoperitoneum Pre-Operative Diagnosis: Enlarging right hemorrhagic ovarian cyst, 7 cm (previously 5 cm on scan less than 24 hours previous), uncontrolled pelvic pain Post-Operative Diagnosis: Hemoperitoneum, enlarged right ovarian cyst 7 cm Estimated Blood Loss: HEMOPERITONEUM APPROXIMATELY 150 Ml, INTRAOPERATIVE BLOOD LOSS MINIMAL Surgeon/Dimmer Board Operator: SAUMYA QUINN DO asst: IRVIN Claros Anesthesia: general endotracheal tube IV Fluids: 1400 mL Urine Output: 100 mL Drains: None Specimens: Right ovarian cyst Complications: None Condition: Good Operative Indication: This patient is a 26-year-old nulliparous female presented to the emergency room yesterday for right lower quadrant pain was found to have a 5 cm hemorrhagic- appearing cyst. She was discharged to home with oral pain medicine however she returned today with worsening pain. HCG continued to be negative. Right ovarian cyst had progressed to 7 cm but no torsion was noted. I discussed surgical management versus observation with the patient and because she required multiple doses of IV Dilaudid to control her pain, decision was made to proceed with surgical management. She was counseled on laparoscopy and ovarian cystectomy with risk of bleeding, possible need for blood transfusion, infection , possible injury to the organs and need for additional procedures complication occur, possibility of oophorectomy. The patient has stated verbal understanding of all the above and desired to proceed. Operative/Procedure Note Note: The patient was taken to the operating room where anesthesia was obtained without difficulty. She was placed in the dorsal lithotomy position and examined under anesthesia. She was found have right adnexal fullness. She was then prepared and draped in usual sterile fashion. A Graves speculum was placed inside the patient's vagina and anterior lip of the cervix was grasped with single-tooth tenaculum and an acorn manipulator was then inserted without difficulty. Neal catheter was inserted. With entrance the patient's abdomen where a 10 mm infraumbilical skin incision was made with scalpel. Incision was carried down to the fascia with the scalpel. Fascia was incised with the scalpel. Peritoneum was identified and entered sharply with Metzenbaum scissors. A 10 mm Murillo was then inserted without difficulty and secured in place with 0 Vicryl ties to the fascia. Intra-abdominal placement was confirmed with laparoscope and pneumoperitoneum was obtained with 3 L of CO2 gas. Upon initial survey the patient had a moderate amount of blood within the pelvic cavity. She had a normal-appearing left ovary and left fallopian tube. In the posterior cul-de-sac she had a large approximately 7 cm cystic mass originating from the right ovary. She had a normal-appearing right fallopian tube. Liver edge appeared to be normal. A 5 mm left lower quadrant incision was made with a scalpel and a 5 mm trocar was then inserted under direct visualization. A 10 mm right lower quadrant incision was made the scalpel and a 10 mm trocar was inserted under direct visualization. The right adnexa was grasped and the cyst was entered with a 5 mm LigaSure device. The cyst contained applied. Cystectomy was then performed using the LigaSure device. Good hemostasis was noted. Blood and clots was then irrigated. An Endo Catch bag was then inserted through the 10 mm port the large cyst and some clots were then removed without difficulty from the right lower quadrant incision and sent for pathology. Further irrigation was then performed to in an attempt to remove as much blood clot as possible. Right ovary was evaluated and noted to be brought and no active bleeding was noted Surgicel was applied. Excellent hemostasis had been noted. All instruments were removed under direct visualization. Right lower quadrant and umbilical fascia was reapproximated with 0 Vicryl. All skin incisions were closed with a subcuticular stitch. All sponge lap, and needle counts were correct 2 the patient was taken to the recovery area in stable condition. Findings: Examination under anesthesia revealed that revealed right adnexal fullness. Intraoperative findings revealed normal left fallopian tube, normal right fallopian tube, and normal left ovary. Large cystic mass extending from the right ovary. One cyst was opened blood was noted within the cavity of the cyst. Moderate hemoperitoneum, normal-appearing liver edge. Possible endometriosis in the area of the right fallopian tube Discharge Disposition: PACU CC: SAUMYA QUINN DO
[2016-10-04 23:59] VITALS: BP 108/76
[2016-10-05 03:54] VITALS: BP 100/64
[2016-10-05 07:56] LABS: ABSOLUTE BASOPHIL COUNT 0 /CUMM (0.0-0.2); ABSOLUTE EOSINOPHIL COUNT 0 /CUMM (0.0-0.7); ABSOLUTE GRANULOCYTE CT 7.4 /CUMM (1.4-6.5); ABSOLUTE LYMPH COUNT 1.5 /CUMM (1.2-3.4); ABSOLUTE MONOCYTE COUNT 0.6 /CUMM (0.10-0.60); BASOPHIL % 0.2 % (0.0-2.0); EOSINOPHIL % 0.1 % (0-5); GRANULOCYTE % 78.1 % (42.2-75.2); HEMATOCRIT 29.3 % (37-47); MEAN CORPUSCULAR HGB 31.2 PG (27.0-31.0); MEAN CORPUSCULAR HGB CONC 33.9 G/DL (33.0-37.0); MEAN CORPUSCULAR VOLUME 92.2 FL (81.0-99.0); MEAN PLATELET VOLUME 8.2 FL (7.4-10.4); PLATELET COUNT 189 /CUMM (130-400); RBC DISTRIBUTION WIDTH 12.7 % (11.5-14.5); RED BLOOD CELL CT 3.18 /CUMM (4.20-5.40); WHITE BLOOD CELL COUNT 9.5 /CUMM (4.8-10.8)
[2016-10-05 08:04] VITALS: BP 100/57
[2016-10-05] MEDS ORDERED: IBUPROFEN800 M1 PO (09:51)
[2016-10-05] MEDS ORDERED: PERCOCET 5-3251 EACH PO (09:51)
--- NOTE | 2016-10-05 11:07 | PN- OBGYN ---
Surgical Brief Attending Note Brief Attending Note: POD#1 pt is resting in bed, no complaints. denies any pain, tolerate diet. PE: VSS abdomen: soft, nontender, incisionD/C/I ext: DCT (-) A/P: 26yo, s/p laparosocpic cystectomy, POD #1 1. pain amnagement as needed 2. encourage ambualtion 3. will d/c home, f/u in office in 2wks.
== END 2016-10-05 11:00 ==
LOC: ENRESERVTM → ENRESERVDT → ERH 10:11 → ER-OR 10:14 → ERH 10:14 → ER-OR 19:02 → 2NB 19:02 → ENPENDDIS 19:08 → PACUH 19:08 → 2NB 20:23
PROVIDERS: Physician Assistant Surgical; ADMIT Obstetrics & Gynecology
DX: N83.11 Corpus luteum cyst of right ovary (principal); K66.1 Hemoperitoneum
CPT/HCPCS: 6040; 88305; 96374; 96376; G0378; J0131; J1170; J2250; J2405; J3010; J7120

== ENCOUNTER 2017-01-13 13:42 | Emergency (ER) | payer OTHER ==
[~2017-01-13] VITALS: Ht 152.4 cm; Wt 56.7 kg
[~2017-01-13 13:42] MED LIST changes: +IBUPROFEN800 M1 PO
[2017-01-13 13:48] VITALS: BP 123/81
[2017-01-13] MEDS ORDERED: AZITHROMYCIN250 M1 PO (14:22)
[2017-01-13] MEDS ORDERED: TESSALON PERLE100 M1 PO (14:22)
[2017-01-13] MEDS ORDERED: PROAIR HFA8.5 GM INH (14:22)
--- NOTE | 2017-01-13 14:22 | ED INFLUENZA/URI COMPLAINT ---
History of Present Illness General Chief Complaint: Upper Respiratory Sx/Fever Stated Complaint: URI X 12DYS Source: patient Exam Limitations: no limitations Vital Signs & Intake/Output Vital Signs & Intake/Output Vital Signs Date Time Temp Pulse Resp B/P B/P Pulse O2 O2 Flow FiO2 Mean Ox Delivery Rate 01/13 1348 98.0 77 18 123/81 100 Room Air Allergies Coded Allergies: NO KNOWN ALLERGIES (10/03/16) Triage Note: PT TO ED C/O COUGH X 2 WEEKS. Triage Nurses Notes Reviewed? yes Onset: Gradual (14 days) Duration: week(s): (2) Timing: no prior history Severity: moderate Severity Numbers: 7 Prior Episodes/Possible Cause: occassional episodes No Modifying Factors: none : No Patient currently breastfeeds: No HPI: Patient is a 26-year-old female with history of childhood asthma presenting to the emergency department with chief complaint of dry cough, congestion tingling at the past 14 days. Associated malaise. Tactile fevers, no chills. Denies any nausea vomiting chest pain or shortness of breath. No sick contacts or recent travel. Denies recent antibiotic use. Nothing seems to make it better, patient has been using [id number] cough medications without relief. (LEXI BRYAN,JAY) Reconcile Medications Albuterol Sulfate (Proair Hfa) 90 MCG HFA.AER.AD 2 PUF INH Q4-6 PRN PRN sob Azithromycin 250 MG TABLET 1 DP PO AD bronchitis 2 the first day followed by 1 for days 2-5 Benzonatate (Tessalon Perle) 100 MG CAPSULE 1 CAP PO TID PRN cough Ibuprofen 800 MG TABLET 800 MG PO TID PRN PAIN SCALE 4-6 (MODERATE) Oxycodone HCl/Acetaminophen (Percocet 5-325 MG Tablet) 5 MG-325 MG TABLET 2 TAB PO Q4-6 PRN PRN PAIN SCALE 7-10 (SEVERE) (TRESA BARRERA,ÓSCAR) Past History Travel History Traveled to [place] past 21 day No Medical History Any Pertinent Medical History? see below for history Neurological: NONE EENT: NONE Cardiovascular: NONE Respiratory: ASTHMA CHILD- HAS OUTGROWN Gastrointestinal: NONE Hepatic: NONE Renal: NONE Musculoskeletal: NONE Psychiatric: NONE Endocrine: NONE Blood Disorders: NONE Cancer(s): NONE DIRECTOR OF PLANNING/Reproductive: OVARIAN CYST RIGHT History of MRSA: No History of VRE: No History of CDIFF: No Surgical History Surgical History: non-contributory Psychosocial History What is your primary language Cymraes Tobacco Use: Never used ETOH Use: denies use Illicit Drug Use: denies illicit drug use Family History Hx Contributory? No (JAY OAKLEY) Review of Systems Review of Systems Constitutional: Reports: malaise. Comments Review of systems: See HPI, All other systems negative. Constitutional, no chills weight loss HEENT: No visual changes no sore throat Cardiovascular: No chest pain ,palpitation , orthopnea or ankle swelling Skin, no jaundice no rashes Respiratory: No dyspnea sputum or hemoptysis GI: No nausea no vomiting Muscle skeletal: no back pain, no neck pain, Neurologic: No numbness no confusion Psych: No stress anxiety or depression,. Heme/endocrine: No bruising no bleeding no polyuria or polydipsia Immunology: No splenectomy or history of AIDS (JAY OAKLEY) Physical Exam Physical Exam General Appearance: well developed/nourished, no apparent distress, alert, awake , comfortable Ears, Nose, Throat: nasal congestion, nasal drainage Comments: Well-developed well-nourished person in no acute distress HEENT: Pupils equally round and reactive to light and accommodation. Nose is atraumatic. Clear nasal discharge bilaterally. Mild congestion behind the tympanic membranes. External auditory canal and Tympanic membranes clear. Pharynx mildly erythematous, no eczema.. No swelling or edema. Neck: Supple, no lymphadenopathy, normal range of motion without pain or tenderness Back: Nontender Cardiovascular: Regular rate and rhythms no murmurs rubs or gallops, normal JVP Respiratory: Chest nontender. No respiratory distress.breath sounds clear to auscultation bilaterally Extremity: No edema Neuro: Alert oriented x3 Skin: No appreciable rash on exposed skin, skin is warm and dry. Psych: Mood and affect is normal, memory and judgment is normal. Core Measures Severe Sepsis Present: No Septic Shock Present: No (JAY OAKLEY) Progress Differential Diagnosis: pneumonia, pharyngitis, sinusitis, bronchitis, upper respiratory infection Plan of Care: Patient has had symptoms for the past 2 weeks. She does have signs of upper respiratory infection. Likely turning bacteria at this point secondary to length of symptoms. Patient will be treated with antibiotics, inhaler and cough medication. PCP follow-up. No indication for chest x-ray at this time. Initial ED EKG: none (JAY OAKLEY) Departure Departure Time of Disposition: 1420 Disposition: HOME OR SELF CARE Condition: Stable Clinical Impression Primary Impression: Bronchitis Referrals: DARLINE BURTON MD (PCP/Family) Additional Instructions: Follow-up with your primary care physician call to make an appointment. Take Z- Wilbert, Tessalon pearls and use inhaler as directed. Increase fluids. Return for worsening symptoms or concerns. Departure Forms: Customer Survey General Discharge Information Prescriptions: Current Visit Scripts Azithromycin 1 DP PO AD #6 TAB 2 the first day followed by 1 for days 2-5 Benzonatate (Tessalon Perle) 1 CAP PO TID PRN cough #30 CAP Albuterol Sulfate (Proair Hfa) 2 PUF INH Q4-6 PRN PRN sob #1 INHAL (JAY OAKLEY) PA/COMMUNITY LIVING COACH Co-Sign Statement Statement: ED Attending supervision documentation- I saw and evaluated the patient. I have also reviewed all the pertinent lab results and diagnostic results. I agree with the findings and the plan of care as documented in the PA's/COMMUNITY LIVING COACH's documentation. x I have reviewed the ED Record and agree with the PA's/COMMUNITY LIVING COACH's documentation. [] Additions or exceptions (if any) to the PAs/COMMUNITY LIVING COACH's note and plan are summarized below: [] (TRESA BARRERA,ÓSCAR)
== END 2017-01-13 14:46 ==
LOC: ERH 13:42
DX: J40 Bronchitis, not specified as acute or chronic (principal)